=== PATIENT | male | born 1955 | race Caucasian/White ===

== ENCOUNTER 2021-02-14 06:33 | Inpatient (IN) ==
[2021-02-08 11:31] LABS: Basophils # 0.1 10*3/uL (0.0-0.2); Basophils % 0.5 % (0.0-0.8); Eosinophils # 0.7 10*3/uL (0.0-0.87); Eosinophils % 5.5 % (0.00-10.9); Hematocrit 45.4 VOL% (42.0-52.0); Hemoglobin 15.2 GM/DL (14.0-18.0); Immature Granulocytes % 0.4 %; Immature Granulocytes Absolute 0.05 #; Lymphocytes # 2.2 10*3/uL (1.4-4.0); Lymphocytes % 16.9 % (21.2-54.2); Mean Corpuscular HGB Conc 33.5 GM/DL (32-36); Mean Corpuscular Volume 91.2 FL (87-102); Monocytes % 6.4 % (1.7-12.7); Neutrophils % 70.3 % (38.7-73.9); Platelet Count 235 T/CUMM (130-400); Red Blood Count 4.98 MC/CUMM (3.8-5.5); Red Cell Distribution Width 12.9 % (9.3-17.3); White Blood Count 13.2 T/CUMM (4-12)
[2021-02-08 11:41] LABS: PT Patient Result 10.7 SECS (9.8-11.9)
[2021-02-08 12:27] LABS: Calcium 8.8 MG/DL (8.5-10.1); Osmolality,Calculated 280.7 MOS/KG (273-304)
[~2021-02-14 06:33] MED LIST: LACTATED RINGERS 1,000 ML IV SCH; LIDOCAINE 2% 5 ML VIAL ONE; MIDAZOLAM 2 MG/2 ML VIAL ONE; NITROGLYCERIN DRIP 0 MG/0 ML BOTTLE IV ONE; ONDANSETRON 4 MG/2 ML VIAL ONE; ROCURONIUM 50 MG/5 ML VIAL IV ONE; ceFAZolin 1,000 MG in SYRINGE 1 EACH IV ONE; fentaNYL 100 MCG/2 ML VIAL ONE; propofoL 200 MG/20 ML VIAL IV ONE
[2021-02-14] MEDS ORDERED: LIDOCAINE 1% 20 ML VIAL ONE (06:44)
[2021-02-14] MEDS ORDERED: HEPARIN 5,000 UNIT/1 ML VIAL ONE (06:44)
[2021-02-14] MEDS ORDERED: HEPARIN/NACL 0.9% 2 UNITS/ML 500 ML IV ONE (07:05)
[2021-02-14] MEDS ORDERED: LIDOCAINE 1% 5 ML VIAL ONE (07:05)
[2021-02-14] MEDS ORDERED: DEXMEDETOMIDINE 200 MCG/2 ML VIAL ONE (07:05)
[2021-02-14] MEDS ORDERED: ROPIVACAINE 0.5% 30 ML VIAL ONE (07:05)
[2021-02-14] MEDS ORDERED: DEXAMETHASONE 4 MG/1 ML VIAL ONE (07:10)
[2021-02-14] MEDS ORDERED: PHENYLEPHRINE DRIP 20 MG/250 ML PREMIX IV ONE (07:19)
[2021-02-14] MEDS ORDERED: propofoL 200 MG/20 ML VIAL IV ONE (08:43)
[2021-02-14] MEDS ORDERED: ePHEDrine 50 MG/ML VIAL ONE (09:17)
[2021-02-14] MEDS ORDERED: PROTAMINE SULFATE 50 MG/5 ML VIAL IV ONE (09:58)
[2021-02-14] MEDS ORDERED: HEPARIN 10,000 UNIT/10 ML VIAL ONE (09:58)
[2021-02-14] MEDS ORDERED: DEXTROSE 50% 25 GM/50 ML VIAL IV PRN (10:14)
[2021-02-14] MEDS ORDERED: NALOXONE 0.4 MG/ML VIAL IV PRN (10:14)
[2021-02-14] MEDS ORDERED: HYDROmorphone 2 MG/1 ML VIAL IV PRN ×2 (10:14)
[2021-02-14] MEDS ORDERED: ONDANSETRON 4 MG/2 ML VIAL IV PRN (10:14)
[2021-02-14] MEDS ORDERED: GLUCAGON 1 MG VIAL IM PRN (10:14)
[2021-02-14] MEDS ORDERED: PROMETHAZINE 25 MG/1 ML VIAL IM PRN (10:14)
[2021-02-14] MEDS ORDERED: oxyCODONE/ACETAMINOPHEN 5-325 MG TABLET PO PRN ×2 (10:14)
[2021-02-14] MEDS ORDERED: NITROPRUSSIDE 100 MG in DEXTROSE 5% 250 ML IV SCH (10:30)
[2021-02-14] MEDS ORDERED: SEVOFLURANE 1 UNIT/15 MINUTE INH ONE (10:41)
[2021-02-14] MEDS ORDERED: NEOSTIGMINE 10 MG/10 ML VIAL ONE (10:42)
[2021-02-14] MEDS ORDERED: GLYCOPYRROLATE 0.4 MG/2 ML VIAL ONE (10:42)
[2021-02-14 11:45] VITALS: BP 122/59
[2021-02-14] MEDS: PHENYLEPHRINE DRIP 40 MG/250 ML PREMIX IV SCH ×2 (11:56→14:04)
[2021-02-14] MEDS: LACTATED RINGERS 1,000 ML IV SCH ×2 (12:00→20:35)
[2021-02-14] MEDS: TAMSULOSIN 0.4 MG CAPSULE PO SCH (20:34)
[2021-02-14] MEDS ORDERED: LATANOPROST 0.005% OPH SOLN 2.5 ML BOTTLE BOTH EYES SCH (21:00)
[2021-02-15] MEDS: LACTATED RINGERS 1,000 ML IV SCH (07:52)
[2021-02-15] MEDS: TAMSULOSIN 0.4 MG CAPSULE PO SCH (08:00)
[2021-02-15] MEDS ORDERED: OMEPRAZOLE ODT 20 MG TABLET PO SCH (09:00)
[2021-02-15] MEDS ORDERED: lisinopriL 20 MG TABLET PO SCH (09:00)
[2021-02-15] MEDS ORDERED: LOSARTAN 50 MG TABLET PO SCH (09:00)
[2021-02-15] MEDS ORDERED: SIMVASTATIN 80 MG TABLET PO SCH (09:00)
[2021-02-15] MEDS ORDERED: ASPIRIN EC 81 MG TABLET PO SCH (09:00)
[2021-02-15] MEDS ORDERED: BISOPROLOL 5 MG TABLET PO SCH (09:00)
[2021-02-15] MEDS ORDERED: CHOLECALCIFEROL 1,000 UNIT TABLET PO SCH (09:00)
[2021-02-15] MEDS ORDERED: hydroCHLOROthiazide 25 MG TABLET PO SCH (09:00)
[2021-02-15] MEDS ORDERED: CLOPIDOGREL 75 MG TABLET PO SCH (09:00)
== END 2021-02-15 12:48 | disposition home or self-care (01) | DRG 38 ==
LOC: N.OR 06:33 → N.SDSINP 06:37 → EDSTATUS 09:30 → N.SDSINP 10:14 → N.ICU 11:37
PROVIDERS: ADMIT Surgery; ATTEND Surgery